=== PATIENT | female | born 1960 | race American Indian/Alaskan Native ===

== ENCOUNTER 2016-11-14 06:15 | Emergency (ER) | payer OTHER ==
--- NOTE | 2016-11-14 06:25 | EDM.PDOC ---
<[place] - Last Filed: 11/14/16 06:22> ED HISTORY OF PRESENT ILLNESS - General Chief Complaint: Respiratory Problem Stated Complaint: IN BY AMBULANCE Time Seen by Provider: 11/14/16 06:22 Source of Information: Reports: Patient, EMS History Limitations: Reports: Intoxication - History of Present Illness INITIAL COMMENTS - FREE TEXT/NARRATIVE: EMS called to scene by PD. Pt c/o SOB upon booking but Pt was smoking cigarette @ scene. Pt intox poor historian but co-op. - Related Data Allergies/ADRs: Allergies Allergy/AdvReac Type Severity Reaction Status Date / Time erythromycin base Allergy Shortness Verified 11/14/16 06:21 of Breath ED ROS GENERAL - Review of Systems Review Of Systems: ROS reveals no pertinent complaints other than HPI. ED EXAM, GENERAL - Physical Exam Exam: See Below Exam Limited By: Intoxication General Appearance: alert, WD/WN, other (intox co-op) Eye Exam: bilateral eye: PERRL (pupils ess ER @ 4mm) Ears: hearing grossly normal Throat/Mouth: Normal voice, No airway compromise Head: atraumatic Neck: non-tender, full range of motion Respiratory/Chest: no respiratory distress, lungs clear, normal breath sounds, no accessory muscle use. No: decreased breath sounds, crackles, rales, rhonchi , wheezing, stridor, accessory muscle use, retractions, splinting Cardiovascular: regular rate, rhythm GI/Abdominal: soft, non tender Neurological: alert, oriented, normal cognition, normal gait, no motor/sensory deficits Psychiatric: flat affect Skin Exam: Warm, Dry Lymphatic: no adenopathy Course - Vital Signs Last Recorded V/S: Last Vital Signs Temp 36.3 C 11/14/16 06:37 Pulse 95 11/14/16 07:38 Resp 20 11/14/16 07:38 BP 105/55 L 11/14/16 07:38 Pulse Ox 98 11/14/16 07:38 - Orders/Labs/Meds Orders: Active Orders 24 hr Category Date Time Status Peripheral IV Care [RC] . DIRECTED Care 11/14/16 07:15 Active Sodium Chloride 0.9% [Normal Saline] 1,000 ml Med 11/14/16 07:20 Active IV .BOLUS Medication Orders Sodium Chloride (Normal Saline) 1,000 mls @ 999 mls/hr IV .BOLUS ONE Stop: 11/14/16 08:20 Last Admin: 11/14/16 07:22 Dose: 999 mls/hr Labs: Laboratory Tests 11/14/16 11/14/16 11/14/16 Range/Units 06:27 06:27 06:27 WBC 6.6 (5.0-10.0) 10^3/uL RBC 4.73 (4.2-5.4) 10^6/uL Hgb 14.5 (12.0-16.0) g/dL Hct 41.5 (37.0-47.0) % MCV 87.7 (80-100) fL MCH 30.7 (27.0-34.0) pg MCHC 34.9 (33.0-35.0) g/dL Plt Count 300 (150-450) 10^3/uL Neut % (Auto) 52.3 (42.2-75.2) % Lymph % (Auto) 39.6 (20.5-50.1) % [place] % (Auto) 5.6 (2-8) % Eos % (Auto) 1.7 (1.0-3.0) % Baso % (Auto) 0.8 (0.0-1.0) % Sodium 141 (135-145) mmol/L Potassium 3.2 L (3.6-5.0) mmol/L Chloride 106 (101-111) mmol/L Carbon Dioxide 24.0 (21.0-31.0) mmol/L Anion Gap 14.2 BUN 7 (7-18) mg/dL Creatinine 0.5 L (0.6-1.3) mg/dL Est Cr Clr Drug Dosing 102.69 mL/min Estimated GFR (MDRD) > 60 BUN/Creatinine Ratio 14.00 Glucose 344 H (74-105) mg/dL Calcium 9.2 (8.4-10.2) mg/dl Magnesium 1.9 (1.8-2.5) mg/dL Total Bilirubin 0.2 (0.2-1.0) mg/dL AST 20 (10-42) IU/L ALT 20 (10-60) IU/L Alkaline Phosphatase 97 (42-121) IU/L Troponin I < 0.02 (0.00-0.02) ng/ml Total Protein 8.1 (6.7-8.2) g/dl Albumin 4.2 (3.2-5.5) g/dl Globulin 3.9 Albumin/Globulin Ratio 1.08 Ethyl Alcohol 235 mg/dL Meds: Medications Generic Name Dose Route Start Last Admin Trade Name Freq PRN Reason Stop Dose Admin Sodium Chloride 1,000 mls @ 999 mls/hr 11/14/16 07:20 11/14/16 07:22 Normal Saline IV 11/14/16 08:20 999 mls/hr .BOLUS ONE Administration Discontinued Medications Generic Name Dose Route Start Last Admin Trade Name Freq PRN Reason Stop Dose Admin Potassium Chloride 20 meq 11/14/16 07:26 11/14/16 07:34 Klor-Con 10 PO 11/14/16 07:27 20 meq ONETIME ONE Administration Departure - Departure Disposition: Home, Self-Care 01 Clinical Impression: SOB (shortness of breath) Alcohol intoxication Qualifiers: Complication of substance-induced condition: uncomplicated Qualified Code(s): F10.120 - Alcohol abuse with intoxication, uncomplicated Instructions: Smoking Cessation, Tips for Success, [id number] Forms: ED Department Discharge Additional Instructions: Rest Increase intake of Fluids ( Water / Juice) Improve eating program ( Increase intake of Fruits / Vegetables) Stop Alcohol Use Stop Cigarette Smoking Take Daily Multi-Vitamin F/U w/ PCP <Kavin Jacinto - Last Filed: 11/14/16 07:56> Departure - Departure Time of Disposition: 07:54 Condition: good
[2016-11-14 07:04] LABS: CHLORIDE,CL 106 mmol/L (101-111); SODIUM,NA 141 mmol/L (135-145)
[2016-11-14] MEDS ORDERED: Sodium Chloride 0.9% 1,000 ML IV ONE (07:20)
[2016-11-14] MEDS ORDERED: Potassium Chloride 10 MEQ Tab.ER PO ONE (07:26)
[2016-11-14 07:58] VITALS: BP 114/70
== END 2016-11-14 08:01 | disposition home or self-care (01) ==
LOC: DL.ED 06:15
DX: F10.120 Alcohol abuse with intoxication, uncomplicated (principal); R06.02 Shortness of breath; Z88.1 Allergy status to other antibiotic agents; Y90.7 Blood alcohol level of 200-239 mg/100 ml
CPT/HCPCS: 36415; 80053; 83735; 84484; 85025; 96360; 99284; A9270; G0480; J7030

== ENCOUNTER 2017-10-14 06:42 | Day surgery (SDC) | payer OTHER ==
[~2017-10-14 06:42] MED LIST: Dextrose 5%-0.45% NaCl 1,000 ML IV SCH; Midazolam 1 MG/ML 2 ML SDV ONE; Sodium Chloride 0.9% 10 ML Syringe FLUSH PRN; fentaNYL 100 MCG/2 ML SDV ONE
[2017-10-14] MEDS ORDERED: fentaNYL 100 MCG/2 ML SDV IV ONE ×3 (06:43→07:43)
[2017-10-14] MEDS ORDERED: Midazolam 1 MG/ML 2 ML SDV IV ONE ×3 (06:43→07:44)
--- NOTE | 2017-10-14 09:10 | OR ---
DATE: 10/14/2017 PROCEDURES: Esophagogastroduodenoscopy and multiple pinch biopsies. INSTRUMENT USED: GIF-H180 Olympus video panendoscope. PREMEDICATIONS: No oral topical anesthesia used. Fentanyl 100 mcg intravenous, Versed 2 mg intravenous. Nasal O2 cannula. The procedure was done under pulse oximetry, BP recording, and radiation monitor. INDICATION: The patient with persistent multiple abdominal symptoms unexplained and not responsive to medical measures. DESCRIPTION OF PROCEDURE: Esophagogastroduodenoscopy is performed for detection of any active erosive lesions. Chu esophagus and/or malignancy also under consideration. H. pylori status to be determined. Small bowel biopsies to be obtained for celiac disease if indicated, endoscopic hemostasis therapy if needed. The scope was passed with ease. Adequate visualization of the esophagus was made from proximal to distal areas. No upper esophageal lesions identified. No distal esophageal stricture. No uphill or downhill esophageal varices. No Rosalba-Roman tear. No evidence of erosive esophagitis by [place] criteria. No esophageal polyp or tumor mass identified. Z-line was seen at around 40 cm distal to the oral verge, configuration consistent with grade 1 by ZAP classification. No proximal gastric varices noted. Gastric fundus examination by retroflexion showed no polypoid lesions. No gastric ulcer, malignant mass, or vascular ectasia identified. Duodenal bulb showed no ulcer. Visualized second part of the duodenum was unremarkable. Multiple pinch biopsies, four in number, were taken from different areas of the second part of the duodenum; and tissues were also obtained from the duodenal bulb at 9 o'clock and 12 o'clock positions and sent for any histopathologic evidence of celiac disease. Multiple pinch biopsies were taken from the gastric antrum and proximal body and sent for PyloriTek test for H. pylori and histopathology. No bleeding was noted from any of the visualized areas at the completion of examination. Photographs were taken of the duodenal bulb, gastric antrum, fundus, and distal esophagus. IMPRESSION: Normal study. The patient tolerated the procedure well. [facility] /[id number]
--- NOTE | 2017-10-14 10:16 | LETTER ---
10/14/2017 Sonia Hartmann MD [facility] [address] [place] [address] RE: AMY FIGUEREDO : [address] Hartmann: Ms. Amy Figueredo had esophagogastroduodenoscopy done this morning and she tolerated the procedure well. I herewith send a copy of the endoscopy note and photographs for your review. Thank you. Sincerely, [facility] /[id number]
[2017-10-14 10:27] VITALS: BP 144/68
== END 2017-10-14 09:53 | disposition home or self-care (01) ==
LOC: DL.ENDO 06:42
PROVIDERS: ATTEND Internal Medicine Gastroenterology
DX: K29.50 Unspecified chronic gastritis without bleeding (principal); B96.81 Helicobacter pylori [H. pylori] as the cause of diseases classified elsewhere; I10 Essential (primary) hypertension; E11.9 Type 2 diabetes mellitus without complications; E66.9 Obesity, unspecified; E78.5 Hyperlipidemia, unspecified; Z88.1 Allergy status to other antibiotic agents; F17.210 Nicotine dependence, cigarettes, uncomplicated; Z90.49 Acquired absence of other specified parts of digestive tract; Z79.82 Long term (current) use of aspirin
CPT/HCPCS: 43239; 87077; J2250; J3010; J7042

== ENCOUNTER 2018-11-02 11:43 | Emergency (ER) | payer OTHER ==
--- NOTE | 2018-11-02 12:27 | EDM.PDOC ---
ED HPI GENERAL MEDICAL PROBLEM - General Chief Complaint: Head Injury Stated Complaint: FELL AND HIT FACE, SWELLING, SENT FROM [place] Time Seen by Provider: 11/02/18 12:10 Source of Information: Reports: Patient, RN, RN Notes Reviewed History Limitations: Reports: No Limitations - History of Present Illness INITIAL COMMENTS - FREE TEXT/NARRATIVE: Pt to ER with c/o bruising on the face. Patient states on Wednesday evening she tripped on a step and fell on her face. She denies LOC or bloody nose. She states she has not had a headache. She states she has been icing the area, but she has developed more bruising and swelling over the forehead and around the eyes. Onset: Sudden Onset Date: 10/28/18 Duration: Constant, Getting Worse Location: Reports: Head, Face Right Face/Facial Pain Score (Numeric/FACES): 5 - Related Data Allergies Allergy/AdvReac Type Severity Reaction Status Date / Time erythromycin base Allergy Shortness Verified 11/02/18 12:31 of Breath Home Meds: Home Meds Lisinopril [Prinivil] 10 mg PO DAILY 11/14/16 [History] metFORMIN HCl [Metformin HCl] 500 mg PO DAILY 11/14/16 [History] Omeprazole 20 mg PO BID PRN 09/14/17 [History] Past Medical History HEENT History: Reports: None Cardiovascular History: Reports: High Cholesterol, Hypertension Respiratory History: Reports: Asthma Gastrointestinal History: Reports: None Genitourinary History: Reports: None 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: Musculoskeletal History: Reports: None Neurological History: Reports: None Psychiatric History: Reports: None Endocrine/Metabolic History: Reports: Diabetes, Type II, Obesity/BMI 30+ Hematologic History: Reports: None Immunologic History: Reports: None Oncologic (Cancer) History: Reports: None Dermatologic History: Reports: None - Infectious Disease History Infectious Disease History: Reports: Chicken Pox - Past Surgical History HEENT Surgical History: Reports: None Cardiovascular Surgical History: Reports: None Respiratory Surgical History: Reports: None GI Surgical History: Reports: Cholecystectomy Female Surgical History: Reports: Tubal Ligation Musculoskeletal Surgical History: Reports: Other (See Below) Other Musculoskeletal Surgeries/Procedures:: bilateral ankle surg Social & Family History - Caffeine Use Caffeine Use: Reports: Coffee ED ROS GENERAL - Review of Systems Review Of Systems: ROS reveals no pertinent complaints other than HPI. ED EXAM, HEAD INJURY - Physical Exam Exam: See Below Exam Limited By: No Limitations Head: Scalp Swelling, Scalp Abrasions, Scalp Ecchymosis, Scalp Hematoma, Scalp Tenderness, Facial Abrasions, Facial Ecchymosis, Facial Tenderness, [place]accoon Eyes Nexus Criteria: No: Posterior, Midline Cervical Tenderness, Evidence of Intoxication, Altered Level of Consciousness, Focal Neurological Deficit, Painful Distraction Injuries Eyes: Right Eye: Conjunctival Injection, Bilateral Eye: EOMI, PERRL (3 Brisk) Ears: Normal External Exam, Normal Canal, Hearing Grossly Normal, Normal TMs Nose: Normal Inspection, Normal Mucousa, No Blood Throat/Mouth: Normal Inspection, Normal Lips, Normal Teeth, Normal Gums, Normal Oropharynx, Normal Voice, No Airway Compromise Neck: Non-Tender, Full Range of Motion, Normal Alignment, Normal Inspection Respiratory: No Respiratory Distress, Lungs Clear, Normal Breath Sounds, No Accessory Muscle Use, Chest Non-Tender Cardiovascular: Normal Peripheral Pulses, Regular Rate, Rhythm, No Edema, No Gallop, No JVD, No Murmur, No Rub GI/Abdominal Exam: Normal Bowel Sounds, Soft, Non-Tender (Female) Exam: Deferred Rectal (Female) Exam: Deferred Back Exam: Full Range of Motion, Normal Inspection, NT Extremities: Normal Inspection, Normal Range of Motion, Non-Tender, No Pedal Edema, Normal Capillary Refill Neurologic: shade classifier II-XII nml As Tested, No Motor/Sensory Deficits, Alert, Normal Mood/Affect, Oriented x 3 Skin: Normal Color, Warm/Dry - Tess Coma Score Best Eye Response ([place]): (4) Open Spontaneously Best Verbal Response ([place]): (5) Oriented Best Motor Response ([place]): (6) Obeys Commands [place] Total: 15 Course - Vital Signs Last Recorded V/S: Last Vital Signs Temp 97.6 F 11/02/18 12:13 Pulse 76 11/02/18 12:13 Resp 16 11/02/18 12:13 BP 197/77 H 11/02/18 12:13 Pulse Ox 98 11/02/18 12:13 - Orders/Labs/Meds Orders: Active Orders 24 hr Category Date Time Status Head wo Cont [CT] Urgent Exams 11/02/18 12:05 Taken Max Facial Sinus wo Cont [CT] Urgent Exams 11/02/18 12:05 Taken - Radiology Interpretation Free Text/Narrative:: Maxillofacial CT wo contrast: FINDINGS: Orbits: No acute intraorbital abnormality. Globes are unremarkable. Sinuses: Normal. No air-fluid levels. Bones/joints: No acute fracture. Soft tissues: There is a hematoma in the frontal scalp. IMPRESSION: No fractures or dislocations. Thank you for allowing us to participate in the care of your patient. Head CT wo contrast: FINDINGS: Brain: Normal. No hemorrhage. No significant white matter disease. No edema. Ventricles: Normal. No ventriculomegaly. Bones/joints: Unremarkable. No acute fracture. Sinuses: Visualized sinuses are unremarkable. No acute sinusitis. Mastoid air cells: Visualized mastoid air cells are unremarkable. No mastoid effusion. Soft tissues: There is a hematoma in the right frontal scalp. The hematoma measures 3.6 x 1.4 cm. IMPRESSION: No acute intracranial changes. Thank you for allowing us to participate in the care of your patient. Dictated and Authenticated by: Aj Givens MD 11/02/2018 1:21 PM Central Time ([place] & [place]) See rad report Departure - Departure Time of Disposition: 14:00 Disposition: Home, Self-Care 01 Condition: Good Clinical Impression: Hematoma Scalp hematoma Qualifiers: Encounter type: initial encounter Qualified Code(s): S00.03XA - Contusion of scalp, initial encounter - Discharge Information *PRESCRIPTION DRUG MONITORING PROGRAM REVIEWED*: No *COPY OF PRESCRIPTION DRUG MONITORING REPORT IN PATIENT NIKO: No Instructions: Head Injury, Adult, [id number], Facial or Scalp Contusion, Easy -to-Read, Hematoma, [id number] Forms: ED Department Discharge Additional Instructions: Continue to ice the area May use Tylenol as directed for pain Follow up with your primary care facility - My Orders Last 24 Hours: My Active Orders 11/02/18 12:05 Head wo Cont [CT] Urgent Max Facial Sinus wo Cont [CT] Urgent - Assessment/Plan Last 24 Hours: My Active Orders 11/02/18 12:05 Head wo Cont [CT] Urgent Max Facial Sinus wo Cont [CT] Urgent
[2018-11-02 14:30] VITALS: BP 189/93
== END 2018-11-02 14:16 | disposition home or self-care (01) ==
LOC: DL.ED 11:43
DX: S00.03XA Contusion of scalp, initial encounter (principal); I10 Essential (primary) hypertension; E11.9 Type 2 diabetes mellitus without complications; E66.9 Obesity, unspecified; Z88.1 Allergy status to other antibiotic agents; Z79.899 Other long term (current) drug therapy; W01.0XXA Fall on same level from slipping, tripping and stumbling without subsequent striking against object, initial encounter
CPT/HCPCS: 70450; 70486; 99283-25

== ENCOUNTER 2020-06-25 07:23 | Day surgery (SDC) | payer BC, OTHER ==
[2020-06-25] MEDS ORDERED: Midazolam 1 MG/ML 2 ML SDV IV ONE ×3 (07:24→07:58)
[2020-06-25] MEDS ORDERED: fentaNYL 100 MCG/2 ML SDV IV ONE ×3 (07:24→07:57)
--- NOTE | 2020-06-25 09:18 | OR ---
DATE: 06/25/2020 PROCEDURE: Esophagogastroduodenoscopy and multiple pinch biopsies. INSTRUMENT USED: GIF-HQ190 Olympus video panendoscope. PREMEDICATIONS: No oral or topical anesthesia used. Fentanyl 100 mcg intravenous, Versed 2 mg intravenous. Nasal O2 cannula. The procedure was done under pulse oximetry, BP recording, and library monitor. INDICATION: The patient with longstanding heartburn and recent persistent upper abdominal pain, unexplained and not responsive to medical measures, on long-term PPI. Esophagogastroduodenoscopy is performed for detection of any active erosive lesions, Chu esophagus and/or malignancy also under consideration, H pylori status to be determined, endoscopic hemostasis therapy if needed. DESCRIPTION OF PROCEDURE: The scope was passed with ease. Adequate visualization of the esophagus was made from proximal to distal areas. No upper esophageal lesions identified. No distal esophageal stricture. No uphill or downhill esophageal varices. No Rosalba-Roman tear. No evidence of erosive esophagitis by [place] criteria. No esophageal polyp or tumor mass identified. The Z-line was seen at around 40 cm distal to the oral verge, configuration consistent with grade 1 by ZAP classification. No proximal gastric varices noted. Gastric fundus examination by retroflexion showed no polypoid lesions. No gastric ulcer, malignant mass, or vascular ectasia identified. Duodenal bulb showed no ulcer. Visualized second part of the duodenum was unremarkable. Multiple pinch biopsies were taken from the gastric antrum and proximal body and sent for PyloriTek test for H pylori, and if negative in an hour, the tissues to be sent for histopathology. No bleeding was noted from any of the visualized areas at the completion of examination. Photographs were taken of the duodenal bulb, gastric antrum, fundus, and distal esophagus. IMPRESSION: Normal study. The patient tolerated the procedure well. [facility] /[id number]
[2020-06-25 10:21] VITALS: BP 154/71; PULSE 58
--- NOTE | 2020-06-25 10:31 | LETTER ---
06/25/2020 Jones Lentz NP [address] [place] [address] RE: AMY FIGUEREDO : 1960 Dear Ms. Lentz, Amy Rainyoselin had esophagogastroduodenoscopy done this morning, and she tolerated the procedure well. I herewith send a copy of the endoscopy note and photographs for your review. Thank you, Sincerely, [facility] /[id number]
== END 2020-06-25 10:10 | disposition home or self-care (01) ==
LOC: DL.ENDO 07:23
PROVIDERS: ATTEND Internal Medicine Gastroenterology
DX: A04.8 Other specified bacterial intestinal infections (principal); E66.09 Other obesity due to excess calories; I10 Essential (primary) hypertension; E11.9 Type 2 diabetes mellitus without complications; Z90.49 Acquired absence of other specified parts of digestive tract; E78.5 Hyperlipidemia, unspecified; M19.90 Unspecified osteoarthritis, unspecified site; F32.9 Major depressive disorder, single episode, unspecified; Z88.1 Allergy status to other antibiotic agents; Z87.09 Personal history of other diseases of the respiratory system; Z68.34 Body mass index [BMI] 34.0-34.9, adult
CPT/HCPCS: 87077; J2250; J3010; J7042